=== PATIENT | female | born 1960 ===

== ENCOUNTER 2021-09-01 10:27 | Inpatient (IN) | payer OTHER ==
[~2021-09-01] VITALS: Ht 157.5 cm; Wt 59.4 kg
[2021-09-01] MEDS ORDERED: ADVAIR 100-501 EACH IH (13:08)
[2021-09-01] MEDS ORDERED: PROAIR RESPICL90 MCG IH (13:08)
[2021-09-01] MEDS ORDERED: BONIVA150 MG PO (13:08)
[2021-09-01] MEDS ORDERED: SINGULAIR 10MG10 MG PO (13:09)
[2021-09-05] MEDS ORDERED: OLOPATADINE HCL5 ML (13:03)
[2021-09-05] MEDS ORDERED: FLUOROMETHOLONE5 ML (13:03)
[2021-09-05] MEDS ORDERED: MAXIMUM D3325 MCG (13:03)
[2021-09-05] MEDS ORDERED: BETAMETHASONE V15 GM (13:03)
[2021-09-08] MEDS ORDERED: PERCOCET 5-3251 EACH PO (17:13)
== END 2021-09-09 00:08 | disposition home or self-care (01) | DRG 330 ==
LOC: SURH 09-05 08:23 → O/R 09-05 08:23 → SURH 09-05 10:30
PROVIDERS: ADMIT Surgery; ATTEND Surgery
PROC: 0DBP4ZZ Excision of Rectum, Percutaneous Endoscopic Approach (ICD-10-PCS; 2021-09-05)
PROC: 0DJD8ZZ Inspection of Lower Intestinal Tract, Via Natural or Artificial Opening Endoscopic (ICD-10-PCS; 2021-09-05)
PROC: 0DTN4ZZ Resection of Sigmoid Colon, Percutaneous Endoscopic Approach (ICD-10-PCS; principal; 2021-09-05 10:30)
DX: K57.32 Diverticulitis of large intestine without perforation or abscess without bleeding (principal); K62.5 Hemorrhage of anus and rectum; R10.32 Left lower quadrant pain; R19.4 Change in bowel habit; K60.1 Chronic anal fissure; R14.0 Abdominal distension (gaseous); Z20.822 Contact with and (suspected) exposure to COVID-19